=== PATIENT | female | born 1960 | race Caucasian/White ===

== ENCOUNTER 2024-02-16 22:39 | Inpatient (IN) | payer MEDICAID ==
[~2024-02-16] VITALS: Ht 167.6 cm; Wt 81.7 kg
[2024-02-16 23:36] LABS: BASOPHILS ABSOLUTE AUTO 0.11 K/mm3 (0.00-0.23); BASOPHILS PERCENT AUTO 1 % (0-2); EOSINOPHILS PERCENT AUTO 9 % (0-6); Hematocrit 44.7 % (33.0-51.0); Hemoglobin 15.3 g/dL (11.5-16.0); IMMATURE GRAN ABSOLUTE AUTO 0.01 K/mm3 (0.00-0.10); IMMATURE GRAN PERCENT AUTO 0 % (0-1); LYMPHOCYTES ABSOLUTE AUTO 2.51 K/mm3 (0.84-5.20); LYMPHOCYTES PERCENT AUTO 32 % (21-46); MONOCYTES ABSOLUTE AUTO 0.78 K/mm3 (0.16-1.47); MONOCYTES PERCENT AUTO 10 % (4-13); Mean Corpuscular HGB Conc 34.2 g/dL (31.5-36.5); Mean Corpuscular Volume 91 fL (80-100); Mean Platelet Volume 9.6 fL (9.1-12.4); NEUTROPHILS ABSOLUTE AUTO 3.64 K/mm3 (1.96-9.15); NEUTROPHILS PERCENT AUTO 47 % (41-73); Platelet Count 376 K/mm3 (150-400); RDW Coefficient Variation 12.8 % (11.7-14.2); RDW Standard Deviation 42.5 fL (35.1-46.3); Red Blood Cell Count 4.93 M/mm3 (3.80-5.20); White Blood Cell Count 7.75 K/mm3 (4.00-11.30)
[2024-02-16 23:57] LABS: Albumin, Blood 3.5 g/dL (3.4-5.0); Bilirubin, Total 0.3 mg/dL (0.1-1.0); Bun/Creatinine Ratio 18.3 (12.0-20.0); Calcium, Blood 9.5 mg/dL (8.5-10.1); Creatinine, Blood 0.88 mg/dL (0.40-1.00); Globulin, Blood 3.5 g/dL (2.2-4.0); Potassium, Blood 4.4 mmol/L (3.5-5.5)
[2024-02-17] MEDS ORDERED: Ipratropium/Albuterol SulF 2.5-0.5MG/3 ML Amp INH ONE (00:05)
[2024-02-17 01:27] LABS: Influenza A, PCR NEGATIVE (NEGATIVE); Influenza B, PCR NEGATIVE (NEGATIVE); Resp Syncytial Virus, PCR NEGATIVE (NEGATIVE); SARS-Cov-2 (COVID-19) PCR, MMC NEGATIVE (NEGATIVE)
[2024-02-17] MEDS ORDERED: Ipratropium/Albuterol SulF 2.5-0.5MG/3 ML Amp INH PRN ×2 (02:40→08:50)
[2024-02-17] MEDS ORDERED: FLU VACC TS2024-25(6MOS UP)/PF 45 MCG/0.5 ML SYRINGE IM ONE (02:40)
[2024-02-17] MEDS ORDERED: Ondansetron HCl 2 MG / ML 2ML Vial IV PRN (02:40)
[2024-02-17] MEDS ORDERED: EUTHYROX50 MCG PO (03:10)
[2024-02-17] MEDS ORDERED: EZET10 PO (03:10)
[2024-02-17] MEDS ORDERED: ZYRTEC10 M2 PO (03:10)
[2024-02-17] MEDS ORDERED: IRBE75 PO (03:11)
[2024-02-17] MEDS ORDERED: Crestor40 MG PO (03:11)
[2024-02-17] MEDS ORDERED: SKYRIZI150 MG/1 M SC (03:12)
[2024-02-17 03:37] VITALS: BP 150/91
[2024-02-17 05:20] LABS: BASOPHILS ABSOLUTE AUTO 0.11 K/mm3 (0.00-0.23); BASOPHILS PERCENT AUTO 1 % (0-2); EOSINOPHILS ABSOLUTE AUTO 0.63 K/mm3 (0.00-0.68); EOSINOPHILS PERCENT AUTO 8 % (0-6); Hemoglobin 14.3 g/dL (11.5-16.0); IMMATURE GRAN ABSOLUTE AUTO 0.01 K/mm3 (0.00-0.10); IMMATURE GRAN PERCENT AUTO 0 % (0-1); LYMPHOCYTES ABSOLUTE AUTO 1.96 K/mm3 (0.84-5.20); LYMPHOCYTES PERCENT AUTO 25 % (21-46); MONOCYTES ABSOLUTE AUTO 0.71 K/mm3 (0.16-1.47); MONOCYTES PERCENT AUTO 9 % (4-13); Mean Corpuscular HGB 31.2 pg (26.0-34.0); Mean Corpuscular Volume 92 fL (80-100); Mean Platelet Volume 9.4 fL (9.1-12.4); NEUTROPHILS ABSOLUTE AUTO 4.45 K/mm3 (1.96-9.15); NEUTROPHILS PERCENT AUTO 57 % (41-73); Platelet Count 305 K/mm3 (150-400); RDW Coefficient Variation 12.9 % (11.7-14.2); RDW Standard Deviation 43.5 fL (35.1-46.3); Red Blood Cell Count 4.59 M/mm3 (3.80-5.20); White Blood Cell Count 7.87 K/mm3 (4.00-11.30)
[2024-02-17 05:46] LABS: Albumin, Blood 3.2 g/dL (3.4-5.0); Bilirubin, Total 0.3 mg/dL (0.1-1.0); Bun/Creatinine Ratio 16.1 (12.0-20.0); Calcium, Blood 8.9 mg/dL (8.5-10.1); Creatinine, Blood 0.81 mg/dL (0.40-1.00); Globulin, Blood 3.2 g/dL (2.2-4.0); Potassium, Blood 4.1 mmol/L (3.5-5.5); Total Protein, Blood 6.4 g/dL (6.4-8.2)
[2024-02-17 07:34] VITALS: BP 132/83
[2024-02-17] MEDS ORDERED: MethylPREDNISolone Sod Succ 125 MG Vial IV SCH (08:00)
[2024-02-17] MEDS ORDERED: Ezetimibe 10 MG Tab PO SCH (09:00)
[2024-02-17] MEDS ORDERED: Enoxaparin 40 MG/0.4 ML SYR SC SCH (09:00)
[2024-02-17] MEDS ORDERED: Irbesartan 150 MG Tab PO SCH (09:00)
[2024-02-17] MEDS ORDERED: Loratadine 10 MG Tab PO SCH (09:00)
[2024-02-17 15:06] VITALS: BP 122/75
--- NOTE | 2024-02-17 18:17 | NUR ---
REPORT RECEIVED VERIFIED A/O X 4 AND SOB, O2 IN THE MID 80S AND O2 NOW UP TO 6L NC WITH RT IN AT BEDSIDE. PT HAVING TREATMENT. PT HAS BEEN TREATED WITH STEROIDS AND O2 AND IS DOING BETTER, O2 DROPPED TO 4L WITH SATS IN THE MID 90S. PT STATES SHE IS FEELING BETTER.
--- NOTE | 2024-02-17 18:24 | NUR ---
1800 LUNG SOUNDS MUCH BETTER PT TO BE KEPT ON 02 THROUGHOUT NIGHT.
[2024-02-17 19:27] VITALS: BP 149/85
[2024-02-17] MEDS ORDERED: Acetaminophen 500 MG Tab PO PRN (19:45)
--- NOTE | 2024-02-17 20:24 | NUR ---
CALLED HOSPITALIST FOR PATIENT'S COMPLAINTS OF HEADACHE. TYLENOL ORDER RECIEVED
[2024-02-17] MEDS ORDERED: Rosuvastatin Calcium 10 MG Tab PO SCH (21:00)
--- NOTE | 2024-02-18 04:48 | NUR ---
SHIFT SUMMARY PATIENT SLEPT IN LONG INTERVALS DID HAVE OCC. COUGHING. O2 AT 3L/NC TELE SR 98. CALLED HOSPITALIST FOR TYLENOL ORDER FOR [place]
[2024-02-18 05:55] VITALS: BP 128/76
[2024-02-18] MEDS ORDERED: Levothyroxine Sodium 0.05 MG Tab PO SCH (06:00)
[2024-02-18 06:10] LABS: BASOPHILS ABSOLUTE AUTO 0.01 K/mm3 (0.00-0.23); BASOPHILS PERCENT AUTO 0 % (0-2); EOSINOPHILS PERCENT AUTO 0 % (0-6); Hematocrit 43.1 % (33.0-51.0); Hemoglobin 14.4 g/dL (11.5-16.0); IMMATURE GRAN ABSOLUTE AUTO 0.04 K/mm3 (0.00-0.10); IMMATURE GRAN PERCENT AUTO 0 % (0-1); LYMPHOCYTES ABSOLUTE AUTO 0.92 K/mm3 (0.84-5.20); LYMPHOCYTES PERCENT AUTO 9 % (21-46); MONOCYTES ABSOLUTE AUTO 0.14 K/mm3 (0.16-1.47); MONOCYTES PERCENT AUTO 1 % (4-13); Mean Corpuscular HGB 30.8 pg (26.0-34.0); Mean Corpuscular HGB Conc 33.4 g/dL (31.5-36.5); Mean Corpuscular Volume 92 fL (80-100); Mean Platelet Volume 10.4 fL (9.1-12.4); NEUTROPHILS ABSOLUTE AUTO 8.71 K/mm3 (1.96-9.15); NEUTROPHILS PERCENT AUTO 89 % (41-73); Platelet Count 308 K/mm3 (150-400); RDW Coefficient Variation 13.1 % (11.7-14.2); RDW Standard Deviation 44.2 fL (35.1-46.3); Red Blood Cell Count 4.67 M/mm3 (3.80-5.20); White Blood Cell Count 9.82 K/mm3 (4.00-11.30)
[2024-02-18 06:36] LABS: Albumin, Blood 3.2 g/dL (3.4-5.0); Anion Gap 12 mmol/L (3-11); Blood Urea Nitrogen 13 mg/dL (8-24); Bun/Creatinine Ratio 17.6 (12.0-20.0); CO2, Blood 23 mmol/L (21-32); Calcium, Blood 8.8 mg/dL (8.5-10.1); Chloride, Blood 108 mmol/L (98-108); Creatinine, Blood 0.74 mg/dL (0.40-1.00); Glomerular Filtration Rate 91 (60-); Glucose, Blood 140 mg/dL (70-99); Phosphorus, Blood 3.1 mg/dL (2.5-4.9); Potassium, Blood 4.4 mmol/L (3.5-5.5); Sodium, Blood 139 mmol/L (136-145)
[2024-02-18 07:12] VITALS: BP 139/77
[2024-02-18] MEDS ORDERED: Irbesartan 150 MG Tab PO SCH (09:00)
[2024-02-18] MEDS ORDERED: Hydrocortisone 1% Cream 30 gm TOP PRN (09:20)
[2024-02-18 15:46] VITALS: BP 142/74
[2024-02-18] MEDS ORDERED: MethylPREDNISolone Sod Succ 125 MG Vial IV SCH (16:00)
--- NOTE | 2024-02-18 19:36 | NUR ---
PT A&OX4, VSS, 4.5LO2 VIA NC WITH SPO2 OF 90 THROUGHOUT SHIFT. PT COMPLAINS OF CHRONIC COUGH. INDEPENDENT IN ROOM, NO COMPLAINS OF PAIN, VSS. NO ACUTE CHANGES THIS SHIFT. CALL LIGHT IN REACH, PT IN BED.
[2024-02-18 23:19] VITALS: BP 148/88
--- NOTE | 2024-02-19 03:58 | NUR ---
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 STARTED SHIFT W/ PT AT 4L SATING 92-96%. SLOWLY WEANED THROUGHOUT THE SHIFT WITH CLOSE MONITORING. AT THIS TIME (0) PT IS ON 2L AND SATING 91-94%. SHE GETS A LITTLE SHORT OF BREATH ON TRIPS TO THE BATHROOM BUT QUICKLY RECOVERS.
[2024-02-19 05:30] VITALS: BP 126/68
[2024-02-19 06:30] LABS: Bun/Creatinine Ratio 23.5 (12.0-20.0); Calcium, Blood 8.8 mg/dL (8.5-10.1); Creatinine, Blood 0.77 mg/dL (0.40-1.00); Potassium, Blood 4.5 mmol/L (3.5-5.5)
[2024-02-19 07:21] VITALS: BP 147/96
[2024-02-19] MEDS ORDERED: Famotidine 20 MG Tab PO SCH (09:00)
[2024-02-19] MEDS ORDERED: Prednisone10 MG PO (10:51)
--- NOTE | 2024-02-19 11:40 | NUR ---
DISCHARGE PATIENT A&OX4, COOPERATIVE WITH CARE, PLEASANT. INDEPENDENT IN ROOM. NO ACUTE EVENTS THIS SHIFT. PATIENT REPORTS THAT SHE TOOK HER O2 OFF "EARLY THIS MORNING" BEFORE SHE TOOK A SHOWER. O2 SATS ABOVE 90%. DENIED SOB, BUT WHEEZING NOTED. LSCTA. TELE REMOVED. PATIENT PULLED IV OUT HERSELF AFTER PROVIDER ROUNDED THIS AM. REVIEWED DISCHARGE PACKET WITH PATIENT. NO QUESTIONS OR CONCERNS. PATIENT WHEELED OUT FOR DISCHARGE AT 1136.
== END 2024-02-19 11:36 | disposition home or self-care (01) | DRG 189 ==
LOC: ER 22:39 → MEDS 22:40
PROVIDERS: Emergency Medicine; Family Medicine; ADMIT Internal Medicine
DX: J96.01 Acute respiratory failure with hypoxia (principal); J45.901 Unspecified asthma with (acute) exacerbation; D72.10 Eosinophilia, unspecified; F17.210 Nicotine dependence, cigarettes, uncomplicated; Z88.2 Allergy status to sulfonamides; Z88.1 Allergy status to other antibiotic agents
CPT/HCPCS: 0241U; 36415; 71045; 80048; 80053; 80069; 83735; 83880; 84484; 85025; 85379; 87070; 87205; 93005; 93010; 94640; 94664; 94760; 96374; 99285-25; A9270; G0378; J2919

== ENCOUNTER → 2024-09-26 | Outpatient (CLI) | payer OTHER ==
[~2024-09-26] MED LIST: Crestor40 MG PO; EUTHYROX50 MCG PO; EZET10 PO; IRBE75 PO; Prednisone10 MG PO; SKYRIZI150 MG/1 M SC; ZYRTEC10 M2 PO
== END ==
LOC: LAB 17:12 → LAB SHORT 17:12
PROVIDERS: Nurse Practitioner Family
DX: Z01.419 Encounter for gynecological examination (general) (routine) without abnormal findings (principal)
CPT/HCPCS: 87624; G0123